=== PATIENT | female | born 1960 | race Caucasian/White ===

== ENCOUNTER → 2018-05-02 | Outpatient (CLI) | payer BC ==
[~2018-05-02] MED LIST: CARAFATE1 GM/10 ML PO; COZAAR25 MG PO; RANITIDINE HCL300 M1; SYNTHROID50 MCG PO; VITAMIN C1000 MG PO; WELLBUTRIN SR150 MG; [UNRECOGNIZED DRUG - OTHER]
--- NOTE | 2018-05-02 12:47 | Diagnostic Imaging Report ---
PROCEDURE:US GALLBLADDER COMPARISON:None. INDICATIONS:RUQ PAIN TECHNIQUE: Quinteros-scale and color doppler transverse and longitudinal images of the right upper quadrant of the abdomen were obtained. FINDINGS: Liver: 14.7 cm in right mid-clavicular line. Normal parenchymal echogenicity. No masses. Main portal vein: 0.7 cm in caliber. Hepatopedal flow. Gallbladder: No shadowing calculus, wall thickening, or pericholecystic fluid. Common Bile Duct: 0.3 cm in caliber. Sonographic Garcia's sign: Reported as negative. Right kidney: 11.7 cm in length. Normal renal cortical echogenicity. No solid masses or hydronephrosis. Pancreas: The visualized portions are unremarkable. Inferior vena cava: Patent Aorta: Non-aneurysmal Ascites: None in the right upper quadrant of the abdomen. CONCLUSION: Unremarkable right upper quadrant ultrasound. Dictated by: Matt Morrison M.D. on 05/02/2018 at 12:56 Electronically approved by: Matt Morrison M.D. on 05/02/2018 at 12:56
== END ==
LOC: US 11:32
PROVIDERS: ATTEND Surgery
DX: R10.11 Right upper quadrant pain (principal)
CPT/HCPCS: 76705

== ENCOUNTER → 2018-05-17 | Day surgery (SDC) | payer BC ==
[2018-05-16 16:17] LABS: BASOPHILS % 0.4 % (0.0-1.0); EOSINOPHILS # (AUTO) 0.2 (0.0-0.4); EOSINOPHILS % 3.4 % (0.0-6.0); HEMATOCRIT 40.1 % (34.2-44.1); HEMOGLOBIN 13.5 g/dL (12.0-16.0); LYMPHOCYTES # (AUTO) 2.2 (1.0-3.2); LYMPHOCYTES % 33.1 % (18.0-39.1); MEAN CORPUSCULAR HEMOGLOBIN 28.9 pg (28-32); MEAN CORPUSCULAR HGB CONC 33.7 g/dL (31-35); MEAN CORPUSCULAR VOLUME 85.9 fL (81-99); MONOCYTES # (AUTO) 0.5 (0.2-0.8); MONOCYTES % 6.9 % (4.4-11.3); NEUTROPHILS # (AUTO) 3.7 (2.1-6.9); NEUTROPHILS % 55.9 % (38.7-80.0); PLATELET COUNT 263 x10e3/uL (140-360); RED BLOOD COUNT 4.67 x10e6/uL (3.6-5.1); RED CELL DISTRIBUTION WIDTH 13.2 % (11.7-14.4)
[2018-05-16 16:21] LABS: CLARITY,URINE CLEAR (CLEAR); COLOR,URINE STRAW (YELLOW); KETONES,URINE NEGATIVE (NEGATIVE); LEUKOCYTE ESTERASE ,URINE TRACE (NEGATIVE); NITRITE,URINE NEGATIVE (NEGATIVE); PROTEIN,URINE DIPSTICK NEGATIVE (NEGATIVE); URINE UROBILINOGEN 0.2 mg/dL (0.2 - 1)
[2018-05-16 16:22] LABS: BILIRUBIN,URINE NEGATIVE (NEGATIVE)
[2018-05-16 16:35] LABS: ALANINE AMINOTRANSFERASE 18 IU/L (0-55); ALBUMIN 4.4 g/dL (3.5-5.0); ALBUMIN/GLOBULIN RATIO 1.4 (0.8-2.0); ALKALINE PHOSPHATASE 100 IU/L (40-150); BLOOD UREA NITROGEN 9 mg/dL (7-26); BUN/CREATININE RATIO 11 (6-25); CALCIUM 10.1 mg/dL (8.4-10.2); CARBON DIOXIDE 29 mmol/L (22-29); CHLORIDE 103 mmol/L (98-107); CREATININE, SERUM 0.81 mg/dL (0.57-1.11); EST GLOMERULAR FILTRATION RATE > 60 ML/MIN (60-); GLUCOSE 95 mg/dL (74-118); SODIUM 139 mmol/L (136-145)
[~2018-05-17] MED LIST changes: +BUPIVACAINE 0.25%/EPI 30ML SDV INJ ONE; +DEXAMETHASONE SOD PHOS INJ 4 MG/ML VIAL ONE; +FENTANYL CITRATE/PF 100MCG/2 ML INJ ONE; +GLYCOPYRROLATE INJ 1MG/ 5 ML SYR ONE; +HYDROCODONE/APAP 7.5MG-325MG 1 EA TAB ONE; +LIDOCAINE HCL 2% LOCAL INJ 5 ML SDV VIAL INJ ONE; +METOCLOPRAMIDE HCL 10 MG/2ML VIAL ONE; +MIDAZOLAM HCL 2 MG/2 ML VIAL ONE; +NEOSTIGMINE 5 MG/5ML SYR ONE; +ONDANSETRON HCL INJ 2 MG/ML VIAL ONE; +PROPOFOL IV EMULSION 10 MG/ML 20 ML VIAL ONE; +ROCURONIUM BROMIDE 10 MG/ML 5ML VIAL ONE; +SEVOFLURANE INHAL SOLN 250 ML PEN BTL ONE
--- OUTSIDE RECORDS SUMMARY | 2018-05-17 07:42 | XMS REPORT ---
Author [facility] Address Unknown Phone Unavailable Care Team Providers Care Clinic Manager Name Role Phone Jany BAIRD Unavailable Unavailable Problems This patient has no known problems. Allergies, Adverse Reactions, Alerts This patient has no known allergies or adverse reactions. Medications This patient has no known medications. Results Test Description Test Time Test Comments Text Results Atomic Results Result Comments US GALLBLADDER 2018-05-02 12:56:00 [place] [address] Patient Name: ZOË MEYERS MR #: [id number] : 1960 Age/Sex: 57/F Req #: [id number] [facility] Physician: Ordered by: SILVIA BAIRD MD Report #: [id number] Location: US Room/Bed: Procedure: [id number] US/US GALLBLADDER Exam Date: Exam Time: REPORT STATUS: Signed PROCEDURE: US GALLBLADDER COMPARISON: None. INDICATIONS: RUQ PAIN TECHNIQUE: Quinteros-scale and color doppler transverse and longitudinal images of the right upper quadrant of the abdomen were obtained. FINDINGS: Liver: 14.7 cm in right mid-clavicular line. Normal parenchymal echogenicity. No masses. Main portal vein: 0.7 cm in caliber. Hepatopedal flow. Gallbladder: No shadowing calculus, wall thickening, or pericholecystic fluid . Common Bile Duct: 0.3 cm in caliber. Sonographic Garcia's sign: Reported as negative. Right kidney: 11.7 cm in length. Normal renal cortical echogenicity. No solid masses or hydronephrosis. Pancreas: The visualized portions are unremarkable. Inferior vena cava: Patent Aorta: Non-aneurysmal Ascites: None in the right upper quadrant of the abdomen. CONCLUSION: Unremarkable right upper quadrant ultrasound. Dictated by: Carlos Quispe M.D. on 05/02/2018 at 12:56 Electronically approved by: Carlos Quispe M.D. on 05/02/2018 at 12:56 Dictated By: CARLOS QUISPE MD [id number] Transcribed By: GAGANDEEP on 05/02/18 1256 COPY TO: SILVIA BAIRD MD
--- NOTE | 2018-05-17 14:09 | Operative Report ---
DATE OF PROCEDURE: May 17, 2018 PREOPERATIVE DIAGNOSES 1. Biliary dyskinesia. 2. Upper abdominal pain, rule out peptic ulcer disease. POSTOPERATIVE DIAGNOSES 1. Biliary dyskinesia. 2. Gastritis. OPERATIONS PERFORMED 1. Laparoscopic cholecystectomy. 2. Esophagogastroduodenoscopy. OVERNIGHT CASHIER: LIZ Herron. ANESTHESIA: General. COMPLICATIONS: None. ESTIMATED BLOOD LOSS: Minimal. DESCRIPTION OF PROCEDURE: With the patient lying in bed in the supine position under good general anesthesia, the abdomen was prepped with Betadine solution and draped in the usual manner. A Veress needle was introduced into the right upper quadrant and pneumoperitoneum was established without any difficulty. A 5-mm trocar was placed in the right upper quadrant. A 5 mm video laparoscope was placed into the intra-abdominal cavity. Video laparoscopy at this point revealed no adhesions to the subumbilical area from the patient's previous lower abdominal surgery. An 11-mm trocar was then placed into the umbilicus and a 10 mm video laparoscope was placed into the intra-abdominal cavity. Under direct vision, 2 more 5-mm trocars were placed in the right subcostal region. Laparoscopy at this point revealed some adhesions to the right side of the abdomen from the patient's previous surgery, and these were taken down without any difficulty. After this was done, the liver appeared to be normal. The stomach and bowel that could be visualized all appeared to be within normal limits. The gallbladder was somewhat boggy and distended, and the liver was within normal limits. We decided to go ahead and proceed with the cholecystectomy as planned. The peritoneum overlying the neck of the gallbladder was then opened and the cystic duct was identified. The cystic duct was followed to its junction with the common duct. Cystic duct was then circumferentially dissected away from the common duct, doubly clipped and divided. The cystic artery was similarly doubly clipped and divided. The gallbladder was then slowly and carefully taken off the liver bed using the cautery scissors and perfect hemostasis was ascertained. The gallbladder was then grasped through the umbilical port and removed without any difficulty. Video laparoscopy was then again carried out. The liver bed was found to be perfectly dry. All of the excess fluid was aspirated. The pneumoperitoneum was evacuated and all the trocars were removed under direct vision. The midline fascia at the umbilicus was then closed with a [id number] of 0 Vicryl. All layers were infiltrated on the way out with a solution of 0.25% Marcaine. Subcutaneous tissue was approximated with 3-0 Vicryl and the skin was closed with subcuticular 5-0 Vicryl and Dermabond. The flexible Olympus gastroscope was then introduced into the back of the throat, and slowly and carefully advanced down the esophagus. The entire length of the esophagus was found to be within normal limits. Esophagogastric junction was then entered. There was no sign of any gastroesophageal reflux disease. The stomach was then entered and insufflated, and examined including retroflexion of the scope. This showed some inflammation in the antrum technical services representative with some mild to moderate gastritis. The pylorus was then entered and the duodenum was inspected all the way down to the 3rd portion. The duodenum was within normal limits. The scope was then slowly and carefully withdrawn. The patient tolerated both procedures well and returned to the recovery room in stable condition. Job#: [id number]
[2018-05-17 15:45] VITALS: BP 124/74
== END | disposition home or self-care (01) ==
LOC: OR 07:39
PROVIDERS: ATTEND Surgery
DX: K81.1 Chronic cholecystitis (principal); K29.70 Gastritis, unspecified, without bleeding; K21.9 Gastro-esophageal reflux disease without esophagitis; I10 Essential (primary) hypertension; E03.9 Hypothyroidism, unspecified; Z88.6 Allergy status to analgesic agent; Z91.048 Other nonmedicinal substance allergy status; Z01.810 Encounter for preprocedural cardiovascular examination; Z01.812 Encounter for preprocedural laboratory examination
CPT/HCPCS: 36415; 43235; 47562; 80053; 81003; 85025; 88304; 93005; C1766; J1100; J2001; J2250; J2405; J2704; J2765; J3490; 43239